=== PATIENT | female | born 1990 | race Caucasian/White ===

== ENCOUNTER 2017-05-25 10:58 | Emergency (ER) | payer OTHER ==
[~2017-05-25] VITALS: Ht 167.6 cm; Wt 67.6 kg
[~2017-05-25 10:58] MED LIST: IRON TABLETS325 MG PO; PERCOCET 5/3251 EACH PO; PNV-SELECT1 TAB PO
[2017-05-25] MEDS ORDERED: PRENATAL PLUS1 TA1 PO (11:05)
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
--- OUTSIDE RECORDS SUMMARY | 2017-05-25 11:12 | External Medical Summary Rpt | CCD ---
Author Author , JAYDA Organization JAYDA Address Unknown Phone [email or web address] Purpose Continuity of Care Document - 02-16-2017 [...]
--- OUTSIDE RECORDS SUMMARY | 2017-05-25 11:13 | External Medical Summary Rpt | CCD ---
Author Author Conduent Organization Condu[employer] Address Unknown Phone Unavailable Purpose Continuity of Care Document - through 2016
--- OUTSIDE RECORDS SUMMARY | 2017-05-25 11:13 | External Medical Summary Rpt | CCD ---
Demographics Preferred Language Scottish Marital Status Unknown Orthodox Affiliation Unknown Race Unknown Ethnic Group Unknown Author Author , JAYDA MONTELONGO Address Unknown Phone Immunization No patient found.
--- OUTSIDE RECORDS SUMMARY | 2017-05-25 11:13 | External Medical Summary Rpt ---
Author Author JAYDA Production, JAYDA [employer] Organization [employer] Address Unknown Phone Unavailable Results HBsAg Screen Observa Value Referen Units Interpr Notes Date tion ce etation Range Hepatit Negativ Negativ No No Perform Feb 16 is B e e informa informa ed at: 2017 virus tion in tion in CB - 11:05 surface source source [facility] AM Ag data data [Presen [place]6 ce] in 370 Serum Kathleen by [facility], [facility] [id number] 69Lab Directo r: Case langford PhD, Phone: [phone] Reagin Ab [Titer] in Serum by RPR Observa Value Referen Units Interpr Notes Date tion ce etation Range Reagin Ab NonRea<1: No No No Feb 16 [Titer] 1 informati informati informati 2017 in Serum on in on in on in 11:05 AM by RPR source source source data data data Rubella virus IgG Ab [Units/volume] in Serum by Immunoassay Observa Value Referen Units Interpr Notes Date tion ce etation Range Rubella Immune index No Non-immun Feb 16 virus IgG >0.99 informati e 2017 Ab on in <0.90Equi 11:05 AM [Units/vo source vocal lume] in data 0.90 - Serum by 0.99Immun Immunoass e ay >0.99 Blood group antibody screen [Presence] in Serum or Plasma Observa Value Referen Units Interpr Notes Date tion ce etation Range Blood NEGATIV NEGATIV No No No Feb 16 group E E informa informa informa 2017 antibod tion in tion in tion in 11:05 y source source source AM screen data data data [Presen ce] in Serum or Plasma Rh [Type] in Blood Observa Value Referen Units Interpr Notes Date tion ce etation Range Rh POSITIV No No No No Feb 16 [Type] E informa informa informa informa 2017 in tion in tion in tion in tion in 11:05 Blood source source source source AM data data data data ABO group [Type] in Blood Observa Value Referen Units Interpr Notes Date ce etation Range ABO O No No No No Feb 16 group informa informa informa informa 2017 [Type] tion in tion in tion in tion in 11:05 in source source source source AM Blood data data data data CBC W Auto Differential panel in Blood Observa Value Referen Units Interpr Notes Date ti ce etation Range Basophils 0 - 0.2 K/MM3 Normal No Feb 16 informati 2016 [#/volume on in 11:05 AM ] in source Blood by data Automated count Basophils 0.1 - 2.0 % Normal No Feb 16 /100 informati 2016 leukocyte on in 11:05 AM s in source Blood by data Automated count Eosinophi 0.0 - 0.4 K/mm3 Normal No Feb 16 ls informati 2016 [#/volume on in 11:05 AM ] in source Blood by data Automated count Eosinophi 0.1 - % Normal No Feb 16 ls/100 12.0 informati 2016 leukocyte on in 11:05 AM s in source Blood by data Automated count Granulocy 1.8 - 7.8 K/mm3 High No Feb 16 adams informati 2016 [#/volume on in 11:05 AM ] in source Blood by data Automated count Granulocy 37.0 - % Normal No Feb 16 adams/100 80.0 informati 2016 leukocyte on in 11:05 AM s in source Blood by data Automated count Hematocri 37.0 - % Normal No Feb 16 t [Volume 47.0 informati 2016 on in 11:05 AM Fraction] source of Blood data Hemoglobi 12.2 - g/dL No No Feb 16 n 16.2 informati informati 2016 [Mass/vol on in on in 11:05 AM ume] in source source Blood data data Lymphocyt 0.7 - 4.5 K/mm3 Normal No Feb 16 es informati 2016 [#/volume on in 11:05 AM ] in source Unspecifi data ed specimen by Automated count Lymphocyt 10 - 50.0 % Normal No Feb 16 es informati 2016 [#/volume on in 11:05 AM ] in source Unspecifi data ed specimen by Automated count Erythrocy 27 - 31.2 pg Normal No Feb 16 te mean [email or web address] corpuscul on in 11:05 AM ar source hemoglobi data n [Entitic mass] Erythrocy 31.8 - g/dl Normal No Feb 16 te mean 35.4 inform2016 corpuscul on in 11:05 AM ar source hemoglobi data n concentra tion [Mass/vol ume] by Automated count Erythrocy 82.2 - fl Normal No Feb 16 te mean 97.8 inform2016 corpuscul on in 11:05 AM ar volume source [Entitic data volume] by Automated count Monocytes 0.1 - 1.0 K/mm3 Normal No Feb 16 informati 2016 [#/volume on in 11:05 AM ] in source Blood by data Automated count Monocytes 1.7 - 9.3 % Normal No Feb 16 /100 inform2016 leukocyte on in 11:05 AM s in source Blood by data Automated count Platelet 7.4 - fl Normal No Feb 16 mean 10.4 inform2016 volume on in 11:05 AM [Entitic source volume] data in Blood by Automated count Platelets 142 - 424 K/mm3 Normal No Feb 16 informati 2016 [#/volume on in 11:05 AM ] in source Blood data Erythrocy 4.2 - 5.4 M/mm3 Normal No Feb 16 adams informati 2016 [#/volume on in 11:05 AM ] in source Amniotic data fluid Erythrocy 11.5 - % Normal No Feb 16 te 17.5 inform2016 distribut on in 11:05 AM ion width source [Entitic data volume] by Automated count Leukocyte 4.8 - K/MM3 Normal No Feb 16 s 10.8 informati 2016 [#/volume on in 11:05 AM ] in source Blood data
--- OUTSIDE RECORDS SUMMARY | 2017-05-25 11:13 | External Medical Summary Rpt | CCD ---
Demographics Preferred Language Argentine Marital Status Unknown Protestant Affiliation Unknown Race Unknown Ethnic Group Unknown Author Author , JAYDA MONTELONGO Address Unknown Phone Immunization No patient found.
--- OUTSIDE RECORDS SUMMARY | 2017-05-25 11:13 | External Medical Summary Rpt ---
[...] [place] ce] in 370 Serum Kathleen by [facility], [facility] [id number] 69Lab Directo r: Case langford PhD, Phone: [phone] Reagin Ab [Titer] in Serum by RPR [...]
--- NOTE | 2017-05-25 11:17 | Emergency Room Report ---
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 N Clinical Suspician of Infection? N Mental Status: 1 - Regular (Normal Baseline) Sepsis Risk:Low Sepsis Risk Have you (or family members/close friends) recently traveled outside the [place]? N If Yes, where/when: Have you had exposure to infectious disease within the past month? N TB? Other? Specify: Comment The patient is 2 para, 20 weeks' gestation and complains of nausea and vomiting. She has had this intermittently through her , but since 7 PM last night has not been able to hold anything down. She has abdominal pain only when she vomits. No diarrhea, fever, or urinary symptoms. She has been on vitamin B6 and Unisom for nausea and vomiting during . ALLERGIES Coded Allergies: No Known Allergies (05/25/17) Home Medications Reported Medications MULTIVIT-MIN W/FE-FA ( Multivitamin Tablet) 1 TAB PO DAILY History Medical History General CAD? No Angina: No GA: No Hypertension? No Hyperlipidemia? No CHF? No COPD? No Asthma? No CVA? No Seizures? No Diabetes? No GB Disease: No MRSA? No TB? No Cancer? 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 Physical Exam Vital Signs Vital Signs Date Time Temp Pulse Resp B/P Pulse O2 O2 Flow FiO2 Ox Delivery Rate 05/25 1221 86 104/70 05/25 1219 98.2 97 18 97/54 98 05/25 1100 98.4 116 18 121/66 99 General Appearance normal appearance, WD/WN Eye Exam - bilateral eye normal exam, bilateral eye PERRL, bilateral eye EOMI Ear, Nose, Throat hearing grossly normal, normal ENT inspection Neck normal inspection, non-tender, supple, full range of motion Respiratory Status Yes: trachea midline, chest symmetrical. No: respiratory distress. Lung Sounds bilateral: normal breath sounds, lungs clear. Cardiovascular normal exam, regular rate/rhythm, no peripheral edema, no gallop, no JVD, no murmur, no rub, normal peripheral pulses Peripheral Pulses Pulses normal Yes Gastrointestinal normal bowel sounds, normal exam, non tender, soft, no organomegaly, 20 week size gravid uterus Extremities normal inspection Neurologic alert, normal exam, oriented x 3 Mental status normal mood/affect Skin intact, normal color, warm/dry Medical Decision Making LABS/Meds/Orders Pt receiving controlled substance in ED? No Results/Orders Laboratory Tests 05/25/17 1106: Sodium 141, Potassium 3.5, Chloride 105, Carbon Dioxide 27, BUN 10, Creatinine 0.6, Estimated Creat Clear 154, Estimated GFR (MDRD) 123, Glucose 101, Calcium 9.1, Total Bilirubin 0.6, AST 23, ALT 17, Alkaline Phosphatase 112, Total Protein 6.9, Albumin 3.2 L, Globulin 3.7 H, Albumin/Globulin Ratio 0.9 L, WBC 11.0 H, RBC 4.46, Hgb 13.3, Hct 39.1, MCV 87.6, RDW 13.9, Plt Count 232, MPV 7.6, Gran % 92.3 H, Gran # 10.1 H, Total Counted 100, Lymphocytes % 4.0 L, Monocytes % 3.4, Eosinophils % 0.2, Basophils % 0.1, Neutrophils 90 H, Lymphocytes (Manual) 6 L, Lymphocytes # 0.4 L, Monocytes (Manual) 3, Monocytes # 0.4, Eosinophils # 0.0, Basophils # 0.0, RBC/WBC/PLT Morphology NORMAL, Atypical Lymphocytes 1, Platelet Estimate NORMAL, PUBS MCHC 34.1, MCH 29.8, Urine Color YELLOW, Urine Appearance SL CLOUDY, Urine pH 6.0, Ur Specific [place] >= 1.030, Urine Protein TRACE H, Urine Ketones 1+ H, Urine Blood NEGATIVE, Urine Nitrate NEGATIVE, Urine Bilirubin NEGATIVE, Urine Urobilinogen 1.0, Ur Leukocyte Esterase TRACE H, Urine RBC OCC, Urine WBC 3-5, Ur Squamous Epith Cells 20-50, Urine Bacteria 3+, Hyaline Casts OCC, Urine Mucus 2+, Urine Glucose NEGATIVE Current Medication Orders Sig/Tita Start time Last Medication Dose Route Stop Time Status Admin Metoclopramide HCl 0 .STK-MED ONE 05/25 1212 DC .ROUTE Metoclopramide HCl 5 MG ONCE ONE 05/25 1130 DC 05/25 IVP 05/25 1131 1213 Sodium Chloride 1,000 ML .Q1H1M 05/25 1115 DC 05/25 IV 05/25 1215 1119 Sodium Chloride 10 ML PRN PRN 05/25 1115 DCD IV 05/26 1113 Sodium Chloride 10 ML PRN PRN 05/25 1115 DCD IV 05/26 1113 Sodium Chloride 1,000 ML .STK-MED ONE 05/25 1105 DC IV Orders Procedure Date/time Status URINALYSIS/COMPLETE 05/25 1114 Complete IV SALINE LOCK 05/25 1113 Active CBC WITH AUTO DIFF 05/25 1113 Complete CHEM 12 PROFILE 05/25 1113 Complete CULTURE, URINE 05/25 1106 Active DIFFERENTIAL-WBC 05/25 1106 Complete Departure Departure Disposition DC Home or Self Care(routine) Clinical Impression Primary Impression: Vomiting affecting Condition STABLE Referrals Lavell RECIO,Biju Bean (Family) Patient Instructions DI for Vomiting -- Adult Additional Instructions Use B6/Unisom for nausea. If ineffective, may use Reglan. Follow-up with Dr. Herndon, call for appointment. Prescriptions Current Visit Scripts Metoclopramide Hcl (Reglan) 5 MG PO TIDP PRN vomiting #10 TAB ED Critical Care Critical Care No at 1435
[2017-05-25 11:20] LABS: URINE BLOOD NEGATIVE (NEG)
[2017-05-25 11:22] LABS: HEMOGLOBIN 13.3 g/dL (12.2-16.2); LYMPH # 0.4 K/mm3 (0.7-4.5)
[2017-05-25 11:30] LABS: URINE BILIRUBIN - DIPSTICK NEGATIVE (NEG)
[2017-05-25 11:39] LABS: URINE SQUAMOUS CELLS 20-50 #/hpf (0-5)
[2017-05-25 12:02] LABS: NEUTROPHILS 90 % (42-76)
[2017-05-25] MEDS ORDERED: REGLAN 5MG TABLE5 MG PO (12:16)
[2017-05-25 12:21] VITALS: BP 104/70
== END 2017-05-25 12:22 | disposition home or self-care (01) ==
LOC: ER 10:58
PROVIDERS: Emergency Medicine
DX: O21.2 Late vomiting of pregnancy (principal); Z3A.20 20 weeks gestation of pregnancy